=== PATIENT | female | born 1945 | race Caucasian/White ===

== ENCOUNTER 2017-12-25 12:52 | Emergency (ER) | payer MEDICARE, OTHER ==
[2017-12-25] MEDS ORDERED: ACETAMINOPHEN 325 MG TABLET PO ONE (13:41)
--- NOTE | 2017-12-25 13:44 | ER Document Report ---
HPI - HPI Patient complains to provider of: Spider bite Onset: Just prior to arrival Onset/Duration: Sudden Quality of pain: Burning Pain Level: 4 Context: Patient states that a spider bit her in 2 places on her right hand at 11 AM today. Patient did see the spider and denies any previous allergic reaction to spider bites. Associated Symptoms: Other - Insect bite Exacerbated by: Movement Relieved by: Denies Similar symptoms previously: No Recently seen / treated by doctor: No - ROS ROS below otherwise negative: Yes Systems Reviewed and Negative: Yes All other systems reviewed and negative - CONSTITUTIONAL Constitutional: DENIES: Fever, Chills - REPRODUCTIVE Reproductive: DENIES: : - MUSCULOSKELETAL Musculoskeletal: REPORTS: Extremity pain, Swelling - DERM Skin Color: Erythema Skin Problems: None Past Medical History - General Information source: Patient - Social History Smoking Status: Never Smoker Frequency of alcohol use: None Drug Abuse: None Lives with: Family Family History: Reviewed & Not Pertinent - Past Medical History Cardiac Medical History: Reports: Hx Hypercholesterolemia, Hx Hypertension Pulmonary Medical History: Reports: Hx Pneumonia Neurological Medical History: Reports: Hx Migraine Renal/ Medical History: Reports: Hx Kidney Stones GI Medical History: Reports: Hx Gastroesophageal Reflux Disease Musculoskeltal Medical History: Reports Hx Arthritis Past Surgical History: Reports: Hx Appendectomy, Hx Cholecystectomy, Hx Hysterectomy, Hx Orthopedic Surgery, Hx Tonsillectomy - Immunizations Immunizations up to date: No Hx Diphtheria, Pertussis, Tetanus Vaccination: No Hx Pneumococcal Vaccination: 06/18/06 Vertical Provider Document - CONSTITUTIONAL Agree With Documented VS: Yes Exam Limitations: No Limitations General Appearance: WD/WN, No Apparent Distress - INFECTION CONTROL TRAVEL OUTSIDE OF THE [place] IN LAST 30 DAYS: No - HEENT HEENT: Atraumatic, Normocephalic - NECK Neck: Normal Inspection - RESPIRATORY Respiratory: No Respiratory Distress - CARDIOVASCULAR Pulses: Normal: Radial - BACK Back: Normal Inspection - MUSCULOSKELETAL/EXTREMETIES Musculoskeletal/Extremeties: MAEW - NEURO Level of Consciousness: Awake, Alert, Appropriate Motor/Sensory: No Motor Deficit - DERM Integumentary: Warm, Dry Notes: Erythematous lesion to the volar aspect of the right fifth finger tip and webspace between thumb and second finger of right hand. Minimal swelling to right fifth finger tendon. No lymphangitis Course - Vital Signs Vital signs: Temp Pulse Resp BP Pulse Ox 97.9 F 57 L 16 109/80 96 12/25/17 13:12 12/25/17 13:12 12/25/17 13:12 12/25/17 13:12 12/25/17 13:12 Discharge - Discharge Clinical Impression: Spider bite Qualifiers: Encounter type: initial encounter Injury intent: undetermined intent Qualified Code(s): T63.304A - Toxic effect of unspecified spider venom, undetermined, initial encounter Condition: Stable Disposition: HOME, SELF-CARE Instructions: Topical Steroid Cream or Ointment ([facility]), Swollen Insect Bite or Sting ([facility]) Additional Instructions: Return immediately for any new or worsening symptoms Followup with your primary care provider, call tomorrow to make a followup appointment Prescriptions: Triamcinolone Acetonide [Aristocort 0.1% Cream] 1 applic TP TID #30 gm Referrals: TORIN CHACON FNP [Primary Care Provider] - Follow up as needed
[2017-12-25 13:55] VITALS: BP 115/75
== END 2017-12-25 14:13 | disposition home or self-care (01) ==
LOC: ER 12:52
DX: T63.301A Toxic effect of unspecified spider venom, accidental (unintentional), initial encounter (principal); M79.89 Other specified soft tissue disorders; I10 Essential (primary) hypertension
CPT/HCPCS: 99282; A9270

== ENCOUNTER 2018-07-15 09:52 | Emergency (ER) | payer MEDICARE, OTHER ==
--- NOTE | 2018-07-15 10:35 | ER Document Report ---
ED Medical Screen (RME) - General Chief Complaint: Dizziness Stated Complaint: DIZZINESS Time Seen by Provider: 07/15/18 10:27 Primary Care Provider: TORIN CHACON FNP [Primary Care Provider] - Follow up as needed Notes: 73-year-old female patient brought emergency room for onset this morning about 6 AM of confusion with right-sided weakness. She reports the right-sided weakness only lasted about a minute and is totally gone now. She also complains of a pressure in her chest and nausea. She states she has had dizziness for the past 2 weeks and it is worse. She did have an appointment scheduled with her primary care provider today to evaluate her dizziness, but they elected to come to the emergency room due to the new neurological symptoms this morning. I have greeted and performed a rapid initial assessment of this patient. A comprehensive ED assessment and evaluation of the patient, analysis of test results and completion of the medical decision making process will be conducted by additional ED providers. TRAVEL OUTSIDE OF THE [place] IN LAST 30 DAYS: No - Related Data Allergies/Adverse Reactions: oxycodone [Oxycodone] Adverse Reaction (Verified 07/15/18 09:55) oxycodone HCl [From OxyContin] Adverse Reaction (Verified 07/15/18 09:55) Past Medical History - Past Medical History Cardiac Medical History: Reports: Hx Hypercholesterolemia, Hx Hypertension Pulmonary Medical History: Reports: Hx Pneumonia Neurological Medical History: Reports: Hx Migraine Renal/ Medical History: Reports: Hx Kidney Stones. Denies: Hx Peritoneal Dialysis GI Medical History: Reports: Hx Gastroesophageal Reflux Disease Musculoskeltal Medical History: Reports Hx Arthritis Past Surgical History: Reports: Hx Appendectomy, Hx Cholecystectomy, Hx Hysterectomy, Hx Orthopedic Surgery, Hx Tonsillectomy - Immunizations Immunizations up to date: No Hx Diphtheria, Pertussis, Tetanus Vaccination: No Physical Exam - Vital signs Vitals: Temp Pulse Resp BP Pulse Ox 98.1 F 51 L 20 107/70 89 L 07/15/18 09:59 07/15/18 09:59 07/15/18 09:59 07/15/18 09:59 07/15/18 09:59 Course - Vital Signs Vital signs: Temp Pulse Resp BP Pulse Ox 98.1 F 51 L 20 107/70 89 L 07/15/18 09:59 07/15/18 09:59 07/15/18 09:59 07/15/18 09:59 07/15/18 09:59 Doctor's Discharge - Discharge Referrals: TORIN CHACON FNP [Primary Care Provider] - Follow up as needed
[2018-07-15 11:09] LABS: ABSOLUTE EOSINOPHILS # (AUTO) 0.1 10^3/uL (0.0-0.6); ABSOLUTE LYMPHOCYTES (AUTO) 2.5 10^3/uL (0.5-4.7); ABSOLUTE MONOCYTES (AUTO) 0.6 10^3/uL (0.1-1.4); ABSOLUTE NEUT (AUTO) 6.2 10^3/uL (1.7-8.2); BASOPHILS % (AUTO) 0.4 % (0-2); EOSINOPHILS % (AUTO) 0.9 % (0-6); HEMATOCRIT 38.3 % (36.0-47.0); HEMOGLOBIN 12.9 g/dL (12.0-15.5); LYMPHOCYTES % (AUTO) 26.6 % (13-45); MEAN CORPUSCULAR HEMOGLOBIN 29.4 pg (27.0-33.4); MEAN CORPUSCULAR HGB CONC 33.6 g/dL (32.0-36.0); MEAN CORPUSCULAR VOLUME 88 fl (80-97); MONOCYTES % (AUTO) 6.7 % (3-13); PLATELET COUNT 190 10^3/uL (150-450); RED BLOOD COUNT 4.37 10^6/uL (3.72-5.28); RED CELL DISTRIBUTION WIDTH 14.5 % (11.5-14.0); SEGMENTED NEUTROPHILS % (AUTO) 65.4 % (42-78); TOTAL CELLS COUNTED % (AUTO) 100 %; WHITE BLOOD COUNT 9.4 10^3/uL (4.0-10.5)
[2018-07-15 11:31] LABS: ALANINE AMINOTRANSFERASE < 6 U/L (9-52); ALBUMIN 4.4 g/dL (3.5-5.0); ALKALINE PHOSPHATASE 54 U/L (38-126); ANION GAP 9 (5-19); ASPARTATE AMINO TRANSFERASE 41 U/L (14-36); BILIRUBIN,DIRECT 0.4 mg/dL (0.0-0.4); BILIRUBIN,TOTAL 0.8 mg/dL (0.2-1.3); BLOOD UREA NITROGEN 13 mg/dL (7-20); CALCIUM 9.3 mg/dL (8.4-10.2); CARBON DIOXIDE 28 mmol/L (22-30); CHLORIDE 105 mmol/L (98-107); CREATINE KINASE 119 U/L (30-135); GLUCOSE 83 mg/dL (75-110); POTASSIUM 4.1 mmol/L (3.6-5.0); SODIUM 141.6 mmol/L (137-145); TOTAL PROTEIN 7.3 g/dL (6.3-8.2)
--- NOTE | 2018-07-15 11:33 | RADIOLOGY REPORT (SQ) ---
EXAM DESCRIPTION: CT HEAD WITHOUT COMPLETED DATE/TIME: 07/15/2018 11:23 am REASON FOR STUDY: Confusion and right-sided weakness this morning COMPARISON: None. TECHNIQUE: Axial images acquired through the brain without intravenous contrast. Images reviewed wi th bone, brain and subdural windows. Additional sagittal and coronal reconstructions were generated. Images stored on PACS. All CT scanners at this facility use dose modulation, iterative reconstruction, and/or weight based d osing when appropriate to reduce radiation dose to as low as reasonably achievable (ALARA). [facility]: Dose Right [facility]: CareDose [facility]: Dose Right [facility]: Teradose 4D [facility]: Pyramid Screening Technology RADIATION DOSE: CT Rad equipment meets quality standard of care and radiation dose reduction techniq ues were employed. CTDIvol: 53.2 mGy. DLP: 1177 mGy-cm. mGy. LIMITATIONS: Patient motion. FINDINGS: VENTRICLES: Prominent. CEREBRUM: No masses. No hemorrhage. No midline shift. Areas of low density in the white matter mos t likely due to chronic micro-vascular ischemic change. No evidence for acute infarction. CEREBELLUM: No masses. No hemorrhage. No alteration of density. No evidence for acute infarction. EXTRAAXIAL SPACES: Mild age-related involutional change. No fluid collections. No masses. ORBITS AND GLOBE: No intra- or extraconal masses. Normal contour of globe without masses. CALVARIUM: No fracture. PARANASAL SINUSES: No fluid or mucosal thickening. SOFT TISSUES: No mass or hematoma. OTHER: No other significant finding. IMPRESSION: MILD CHRONIC CHANGES OF ATROPHY AND MICROVASCULAR ISCHEMIA. NO ACUTE PROCESS. EVIDENCE OF ACUTE STROKE: NO. TECHNICAL DOCUMENTATION: JOB ID: [id number] Quality ID # [id number]: Final reports with documentation of one or more dose reduction techniques (e.g., Au tomated exposure control, adjustment of the mA and/or kV according to patient size, use of iterative reconstruction technique) 2010 [employer]- All Rights Reserved Reading location - IP/workstation name: [email or web address]
[2018-07-15 11:43] LABS: CREATINE KINASE MB 1.41 ng/mL (<4.55); TROPONIN I < 0.012 ng/mL
[2018-07-15] MEDS ORDERED: MECLIZINE HCL 25 MG TABLET PO ONE (11:46)
[2018-07-15] MEDS ORDERED: NORMAL SALINE 250 ML IV ONE (11:47)
--- NOTE | 2018-07-15 11:50 | RADIOLOGY REPORT (SQ) ---
EXAM DESCRIPTION: CHEST SINGLE VIEW COMPLETED DATE/TIME: 07/15/2018 11:16 am REASON FOR STUDY: Confusion and right-sided weakness this morning COMPARISON: 12/21/17. EXAM PARAMETERS: NUMBER OF VIEWS: One view. TECHNIQUE: Single frontal radiographic view of the chest acquired. RADIATION DOSE: NA LIMITATIONS: None. FINDINGS: LUNGS AND PLEURA: No opacities, masses or pneumothorax. No pleural effusion. MEDIASTINUM AND HILAR STRUCTURES: No masses. Contour normal. HEART AND VASCULAR STRUCTURES: Heart normal in size. Normal vasculature. BONES: No acute findings. HARDWARE: None in the chest. OTHER: No other significant finding. IMPRESSION: NO ACUTE RADIOGRAPHIC FINDING IN THE CHEST. TECHNICAL DOCUMENTATION: JOB ID: [id number] [employer]- All Rights Reserved Reading location - IP/workstation name: [email or web address]
[2018-07-15 13:52] LABS: APPEARANCE,URINE SLIGHTLY-CLOUDY; BILIRUBIN,URINE NEGATIVE (NEGATIVE); COLOR,URINE YELLOW; GLUCOSE, URINE NEGATIVE (NEGATIVE); KETONES,URINE NEGATIVE (NEGATIVE); LEUKOCYTE ESTERASE,URINE TRACE (NEGATIVE); NITRITE,URINE NEGATIVE (NEGATIVE); PROTEIN,URINE NEGATIVE (NEGATIVE); URINE SPECIFIC GRAVITY 1.014; UROBILINOGEN,URINE NEGATIVE mg/dL (<2.0)
--- NOTE | 2018-07-15 14:25 | ER Document Report ---
ED General - General Chief Complaint: Dizziness Stated Complaint: DIZZINESS Time Seen by Provider: 07/15/18 10:27 Primary Care Provider: TORIN CHACON FNP [Primary Care Provider] - Follow up as needed TRAVEL OUTSIDE OF THE [place] IN LAST 30 DAYS: No - HPI Patient complains to provider of: Dizziness Notes: Patient coming in for evaluation of dizziness. Patient states she has been dizzy for "quite some time" her today more pronounced. According to the at bedside patient had a dizzy spell causing her to fall into the cabinets hitting her head. Patient denies any loss of consciousness. Patient denies any fever chills nausea vomiting diarrhea changes to her medications. Patient does have a history of CHF and is currently on Lasix. Patient states compliant with her medication regimen. Patient states the dizziness mostly occurs whenever she stands up completely. Patient states she does use a walker at home to ambulate around. Otherwise patient is in no distress upon my evaluation - Related Data Allergies/Adverse Reactions: oxycodone [Oxycodone] Adverse Reaction (Verified 07/15/18 09:55) oxycodone HCl [From OxyContin] Adverse Reaction (Verified 07/15/18 09:55) Past Medical History - Social History Smoking Status: Never Smoker Chew tobacco use (# tins/day): No Drug Abuse: None Family History: Reviewed & Not Pertinent Patient has suicidal ideation: No Patient has homicidal ideation: No - Past Medical History Cardiac Medical History: Reports: Hx Hypercholesterolemia, Hx Hypertension Pulmonary Medical History: Reports: Hx Pneumonia Neurological Medical History: Reports: Hx Migraine Renal/ Medical History: Reports: Hx Kidney Stones. Denies: Hx Peritoneal Dialysis GI Medical History: Reports: Hx Gastroesophageal Reflux Disease Musculoskeletal Medical History: Reports Hx Arthritis Past Surgical History: Reports: Hx Appendectomy, Hx Cholecystectomy, Hx Hysterectomy, Hx Orthopedic Surgery, Hx Tonsillectomy - Immunizations Immunizations up to date: No Hx Diphtheria, Pertussis, Tetanus Vaccination: No Hx Pneumococcal Vaccination: 06/18/06 Review of Systems - Review of Systems Constitutional: No symptoms reported EENT: No symptoms reported Cardiovascular: No symptoms reported Respiratory: No symptoms reported Gastrointestinal: No symptoms reported Genitourinary: No symptoms reported Female Genitourinary: No symptoms reported Musculoskeletal: No symptoms reported Skin: No symptoms reported Hematologic/Lymphatic: No symptoms reported Neurological/Psychological: Other - Dizziness -: Yes All other systems reviewed and negative Physical Exam - Vital signs Vitals: Temp Pulse Resp BP Pulse Ox 98.1 F 51 L 20 107/70 89 L 07/15/18 09:59 07/15/18 09:59 07/15/18 09:59 07/15/18 09:59 07/15/18 09:59 Interpretation: Normal - General General appearance: Appears well, Alert - HEENT Head: Normocephalic, Atraumatic Eyes: Normal Pupils: PERRL - Respiratory Respiratory status: No respiratory distress Chest status: Nontender Breath sounds: Normal Chest palpation: Normal - Cardiovascular Rhythm: Regular Heart sounds: Normal auscultation Murmur: No - Abdominal Inspection: Normal Distension: No distension Bowel sounds: Normal Tenderness: Nontender Organomegaly: No organomegaly - Back Back: Normal, Nontender - Extremities General upper extremity: Normal inspection, Nontender, Normal color, Normal ROM, Normal temperature General lower extremity: Normal inspection, Nontender, Normal color, Normal ROM, Normal temperature, Normal weight bearing. No: Mary's sign - Neurological Neuro grossly intact: Yes Cognition: Normal Orientation: AAOx4 Frank Coma Scale Eye Opening: Spontaneous Frank Coma Scale Verbal: Oriented Frank Coma Scale Motor: Obeys Commands Frank Coma Scale Total: 15 Speech: Normal Cranial nerves: Normal Cerebellar coordination: Normal Motor strength normal: LUE, RUE, LLE, RLE Sensory: Normal Knee - Reflex grade: 2 = Normal - Psychological Associated symptoms: Normal affect, Normal mood - Skin Skin Temperature: Warm Skin Moisture: Dry Skin Color: Normal Course - Re-evaluation Re-evalutation: 07/15/18 15:24 Patient's orthostatics did show a change. Patient did become dizzy upon performing this possible etiology of the patient's dizziness is due to orthostasis. Did recommend compression stockings will also continue with meclizine as patient states improvement after her stay here in ER. Did recomm end continued use of the walker follow-up primary care physician for neurology referral. - Vital Signs Vital signs: Temp Pulse Resp BP Pulse Ox 98.1 F 63 20 107/60 94 07/15/18 09:59 07/15/18 12:30 07/15/18 14:26 07/15/18 14:27 07/15/18 14:05 - Laboratory Result Diagrams: 07/15/18 10:52 07/15/18 10:52 Laboratory results interpreted by me: 07/15/18 07/15/18 07/15/18 10:52 10:52 13:33 RDW 14.5 H AST 41 H ALT < 6 L Ur Leukocyte Esterase TRACE H Discharge - Discharge Clinical Impression: Orthostatic dizziness Condition: Good Instructions: Dizziness ([facility]), Meclizine ([facility]) Additional Instructions: Your laboratory studies today do not show any critical pathology do believe you have orthostatic dizziness this is treated with compression stockings also recommend taking the meclizine as prescribed in case she did have underlying benign positional vertigo. Please follow-up with your physician I do believe he may need to decrease her dose of Lasix but I would like to your primary care physician to make that decision please wear the compression stockings as recommended please change positions slowly also recommend follow-up with a neurologist. Prescriptions: Compression Socks, Medium [Futuro Restoring] 1 each MC DAILY #1 each Meclizine HCl [Antivert 25 mg Tablet] 25 mg PO TID PRN #21 tablet PRN Reason: Referrals: TORIN CHACON FNP [Primary Care Provider] - Follow up as needed
[2018-07-15 14:31] VITALS: BP 107/60
== END 2018-07-15 14:46 | disposition home or self-care (01) ==
LOC: ER 09:52
DX: R42 Dizziness and giddiness (principal); I11.0 Hypertensive heart disease with heart failure; I50.9 Heart failure, unspecified; Z79.899 Other long term (current) drug therapy
CPT/HCPCS: 99285; 51701; 36415; 82553; 82550; 85025; 80053; 81001; 84484; 71045; 70450; A9270; J7050

== ENCOUNTER 2018-10-15 17:20 | Emergency (ER) | payer MEDICARE, OTHER ==
[2018-10-15] MEDS ORDERED: IBUPROFEN 600 MG TABLET PO ONE (19:44)
--- NOTE | 2018-10-15 19:51 | ER Document Report ---
ED Medical Screen (RME) - General Chief Complaint: Fall Injury Stated Complaint: FALL/SHOULDER PAIN Time Seen by Provider: 10/15/18 19:38 Primary Care Provider: TORIN CHACON FNP [Primary Care Provider] - Follow up as needed Mode of Arrival: Wheelchair Information source: Patient Notes: Patient is a 73-year-old female presented to the emergency department chief complaint of right shoulder pain. Patient reports she was walking up the stairs when she tripped over her cat falling onto her right shoulder. She states that she has pain with any range of motion. Patient reports history of 2 shoulder surgeries in the past. Patient denies any dizziness prior to the fall. Exam: Tenderness to palpation to anterior and posterior right shoulder, limited range of motion, no crepitus or deformity noted. I have greeted and performed a rapid initial assessment of this patient. A comprehensive ED assessment and evaluation of the patient, analysis of test results and completion of the medical decision making process will be conducted by additional ED providers. Dictation of this chart was performed using voice recognition software; therefore, there may be some unintended grammatical errors. TRAVEL OUTSIDE OF THE [place] IN LAST 30 DAYS: No - Related Data Allergies/Adverse Reactions: oxycodone [Oxycodone] Adverse Reaction (Verified 07/15/18 09:55) oxycodone HCl [From OxyContin] Adverse Reaction (Verified 07/15/18 09:55) Past Medical History - Social History Chew tobacco use (# tins/day): No Frequency of alcohol use: None Drug Abuse: None - Past Medical History Cardiac Medical History: Reports: Hx Hypercholesterolemia, Hx Hypertension Pulmonary Medical History: Reports: Hx Pneumonia Neurological Medical History: Reports: Hx Migraine Renal/ Medical History: Reports: Hx Kidney Stones. Denies: Hx Peritoneal Dialysis GI Medical History: Reports: Hx Gastroesophageal Reflux Disease Musculoskeltal Medical History: Reports Hx Arthritis Past Surgical History: Reports: Hx Appendectomy, Hx Cholecystectomy, Hx Hysterectomy, Hx Orthopedic Surgery, Hx Tonsillectomy - Immunizations Immunizations up to date: No Hx Diphtheria, Pertussis, Tetanus Vaccination: No Physical Exam - Vital signs Vitals: Temp Pulse Resp BP Pulse Ox 98.7 F 69 18 132/55 H 93 10/15/18 17:54 10/15/18 17:54 10/15/18 17:54 10/15/18 17:54 10/15/18 17:54 Course - Vital Signs Vital signs: Temp Pulse Resp BP Pulse Ox 98.7 F 69 18 132/55 H 93 10/15/18 17:54 10/15/18 17:54 10/15/18 17:54 10/15/18 17:54 10/15/18 17:54 Doctor's Discharge - Discharge Referrals: TORIN CHACON FNP [Primary Care Provider] - Follow up as needed
--- NOTE | 2018-10-15 20:20 | RADIOLOGY REPORT (SQ) ---
EXAM DESCRIPTION: SHOULDER RIGHT 2 OR MORE VIEWS COMPLETED DATE/TIME: 10/15/2018 8:05 pm REASON FOR STUDY: fall injury COMPARISON: None. NUMBER OF VIEWS: Three views. TECHNIQUE: Internal rotation, external rotation, and Y view images acquired of the right shoulder. LIMITATIONS: None. FINDINGS: MINERALIZATION: Normal. BONES: No acute fracture or dislocation. No worrisome bone lesions. JOINTS: No dislocation. VISUALIZED LUNGS AND RIBS: No pneumothorax. No rib fracture. SOFT TISSUES: No radiopaque foreign body. OTHER: No other significant finding. IMPRESSION: NEGATIVE STUDY OF THE RIGHT SHOULDER. NO RADIOGRAPHIC EVIDENCE OF ACUTE INJURY. TECHNICAL DOCUMENTATION: JOB ID: [id number] [employer]- All Rights Reserved Reading location - IP/workstation name: [email or web address]
[2018-10-15] MEDS ORDERED: OXYCODONE-ACETAMINOPHEN 5-325 MG TABLET PO ONE (22:16)
[2018-10-15] MEDS ORDERED: KETOROLAC TROMETHAMINE 60 MG/2 ML SDV IM ONE (22:16)
--- NOTE | 2018-10-15 22:22 | ER Document Report ---
ED Fall - General Chief Complaint: Fall Injury Stated Complaint: FALL/SHOULDER PAIN Time Seen by Provider: 10/15/18 19:38 Primary Care Provider: TORIN CHACON FNP [Primary Care Provider] - Follow up as needed Mode of Arrival: Wheelchair Information source: Patient Notes: Patient is sent for a female states that on Sunday last week she was going up steps her cat got in front of her and she tripped over the cat falling forward. She landed on her right shoulder. She had no pain or discomfort after the initial fall but she started having pain on and Sunday increasing pain Sunday by Sunday she had severe neck pain. She is here to get that evaluated. Patient's most of her pain lies along the right lateral side of her neck in the posterior portion and the area anterior shoulder also hurts. Patient has had 2 repair surgeries on her rotator cuff on the right side. TRAVEL OUTSIDE OF THE [place] IN LAST 30 DAYS: No - Related data Allergies/Adverse Reactions: oxycodone [Oxycodone] Adverse Reaction (Verified 07/15/18 09:55) oxycodone HCl [From OxyContin] Adverse Reaction (Verified 07/15/18 09:55) Past Medical History - General Information source: Patient - Social History Smoking Status: Never Smoker Chew tobacco use (# tins/day): No Frequency of alcohol use: None Drug Abuse: None Family History: Reviewed & Not Pertinent Patient has suicidal ideation: No Patient has homicidal ideation: No - Past Medical History Cardiac Medical History: Reports: Hx Hypercholesterolemia, Hx Hypertension Pulmonary Medical History: Reports: Hx Pneumonia Neurological Medical History: Reports: Hx Migraine Renal/ Medical History: Reports: Hx Kidney Stones. Denies: Hx Peritoneal Dialysis GI Medical History: Reports: Hx Gastroesophageal Reflux Disease Musculoskeletal Medical History: Reports Hx Arthritis Past Surgical History: Reports: Hx Appendectomy, Hx Cholecystectomy, Hx Hysterectomy, Hx Orthopedic Surgery, Hx Tonsillectomy - Immunizations Immunizations up to date: No Hx Diphtheria, Pertussis, Tetanus Vaccination: No Hx Pneumococcal Vaccination: 06/18/06 Review of Systems - Review of Systems Constitutional: No symptoms reported EENT: No symptoms reported Cardiovascular: No symptoms reported Respiratory: No symptoms reported Gastrointestinal: No symptoms reported Genitourinary: No symptoms reported Female Genitourinary: No symptoms reported Musculoskeletal: See HPI, Joint pain, Neck pain Skin: No symptoms reported Hematologic/Lymphatic: No symptoms reported Neurological/Psychological: No symptoms reported -: Yes All other systems reviewed and negative Physical Exam - Vital signs Vitals: Temp Pulse Resp BP Pulse Ox 98.7 F 69 18 132/55 H 93 10/15/18 17:54 10/15/18 17:54 10/15/18 17:54 10/15/18 17:54 10/15/18 17:54 Interpretation: Hypertensive - Notes Notes: PHYSICAL EXAMINATION: GENERAL: Well-appearing, well-nourished and in no acute distress. But uncomfortable appearing. HEAD: Atraumatic, normocephalic. EYES: Pupils equal round and reactive to light, extraocular movements intact, conjunctiva are normal. ENT: Nares patent, oropharynx clear without exudates. Moist mucous membranes. NECK:Examination patient's cervical spine shows she has some moderate tenderness to palpation on the right side of the neck. There appears to be some spasms in the lower portion of the neck into the upper trapezius. Moderate tenderness to palpation along the right scapular border as well. Also palpation along the anterior portion of the right shoulder around the rotator cuff shows moderate tenderness. Range of motion is decreased mild crepitus felt in the right anterior portion of the shoulder around the rotator cuff with passive range of motion. Active range of motion shows moderate amount of discomfort and unable to bear the arm greater than parallel to the shoulder. Patient displays a good vascular exam with good cap refill in the nailbeds of the right fingers. She also displays good radial and ulnar pulses. 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 She has good flexion-extension at the elbow with no deficits against resistance. LUNGS: Breath sounds clear to auscultation bilaterally and equal. No wheezes rales or rhonchi. HEART: Regular rate and rhythm without murmurs Female : deferred Musculoskeletal: See neck above for full description of shoulder neck combined NEUROLOGICAL: Normal speech, normal gait. Normal sensory, motor exams PSYCH: Normal mood, normal affect. SKIN: Warm, Dry, normal turgor, no rashes or lesions noted. Course - Re-evaluation Re-evalutation: 10/17/18 13:29 My discussion with patient showed that I am concerned about the rotator cuff having damage. She had 2 surgeries on the rotator cuff in the past last one done by Dr. Khalil. I have instructed patient to contact Dr. Khalil's office for further reevaluation of this area. I did write patient for some Percocet but she declined to take them. She had it listed as an allergy but informed that she is taking the past without any problems. However on discharge she decided not to accept the prescription and will use only ibuprofen. - Vital Signs Vital signs: Temp Pulse Resp BP Pulse Ox 97.7 F 59 L 18 139/85 H 95 10/15/18 22:20 10/15/18 22:20 10/15/18 17:54 10/15/18 22:20 10/15/18 22:20 Discharge - Discharge Clinical Impression: Torticollis, acute Rotator cuff (capsule) sprain Qualifiers: Encounter type: initial encounter Laterality: right Qualified Code(s): S43.421A - Sprain of right rotator cuff capsule, initial encounter Condition: Good Disposition: HOME, SELF-CARE Instructions: Rotator Cuff Injury ([facility]), Torticollis ([facility]) Additional Instructions: Home and rest. Use the sling when ambulatory. Ice to the area only 3 times a day not continuously. You may use 600 of ibuprofen alternating with the pain medication I gave you every 4-[address] Zimmer for follow-up on the shoulder since you have had 2 surgeries on it. Return to ER if having concerns or problems. Prescriptions: Cyclobenzaprine HCl [Flexeril 10 mg Tablet] 10 mg PO TID PRN #21 tablet PRN Reason: Oxycodone HCl/Acetaminophen [Percocet 5-325 mg Tablet] 1 tab PO Q4 PRN #15 tab PRN Reason: Forms: Elevated Blood Pressure Referrals: TORIN CHACON FNP [Primary Care Provider] - Follow up as needed
[2018-10-15 22:23] VITALS: BP 139/85
== END 2018-10-15 22:47 | disposition home or self-care (01) ==
LOC: ER 17:20
DX: S43.421A Sprain of right rotator cuff capsule, initial encounter (principal); S13.4XXA Sprain of ligaments of cervical spine, initial encounter; M54.2 Cervicalgia; W10.9XXA Fall (on) (from) unspecified stairs and steps, initial encounter; Z98.890 Other specified postprocedural states; I10 Essential (primary) hypertension
CPT/HCPCS: 99283; 96372; 73030; J1885; A9270